=== PATIENT | male | born 1965 | race Caucasian/White ===

== ENCOUNTER 2019-05-13 18:21 | Emergency (ER) | payer OTHER, MEDICAID ==
[~2019-05-13] VITALS: Ht 175.3 cm; Wt 109.1 kg
[~2019-05-13 18:21] MED LIST: ALBU18HF2 IH; ATE25T PO; CYAN100061 IM; DULO-31 PO; ELET40TA PO; EPIN0.3A2 SQ; ERGO500014 PO; ESZO3TAB44 PO; FENT1PAT11 TD; FLO44IN IH; LISI-222 PO; MOME220A2 IH; NOR5T PO; PRED10TA PO; SIMV80TA2 PO; TIOT18CA7 IH
[2019-05-13 18:51] LABS: BASOPHILS # (AUTO) 0.1 X10'3 (0-0.2); EOSINOPHILS # (AUTO) 0.2 X10'3 (0-0.9); EOSINOPHILS % (AUTO) 1.5 % (0-6); HEMATOCRIT 42.5 % (42.0-52.0); HEMOGLOBIN 14.6 g/dl (14.0-17.9); LYMPHOCYTES # (AUTO) 2.9 X10'3 (1.1-4.8); LYMPHOCYTES % (AUTO) 28.1 % (21-51); MEAN CORPUSCULAR HEMOGLOBIN 30.3 PG (27.0-31.0); MEAN CORPUSCULAR HGB CONC 34.3 g/dL (33.0-36.5); MEAN CORPUSCULAR VOLUME 88.4 FL (78-98); MEAN PLATELET VOLUME 7.9 FL (7.4-10.4); MONOCYTES # (AUTO) 0.9 X10'3 (0-0.9); MONOCYTES % (AUTO) 8.6 % (2-12); NEUTROPHILS # (AUTO) 6.3 X10'3 (1.8-7.7); NEUTROPHILS % (AUTO) 60.8 % (42-75); PLATELET COUNT 197 X10'3 (140-440); RED BLOOD COUNT 4.81 X10'6 (4.70-6.10); RED CELL DISTRIBUTION WIDTH 16.1 % (11.5-14.5); WHITE BLOOD COUNT 10.3 X10'3 (4.5-11.0)
[2019-05-13] MEDS ORDERED: ondansetron 4mg rapidly disintigrating tab PO ONE (18:55)
[2019-05-13 19:01] LABS: PARTIAL THROMBOPLASTIN TIME 29 SECONDS (22-32)
[2019-05-13 19:03] LABS: ALANINE AMINOTRANSFERASE 43 U/L (12-78); ALBUMIN 3.8 G/DL (3.4-5.0); ALBUMIN/GLOBULIN RATIO 1.1 (1.1-1.5); ALKALINE PHOSPHATASE 63 IU/L (46-116); ANION GAP 11 (8-16); ASPARTATE AMINO TRANSFERASE 16 U/L (10-37); BILIRUBIN,TOTAL 0.3 MG/DL (0.1-1.0); BLOOD UREA NITROGEN 19 MG/DL (7-18); BUN/CREATININE RATIO 19.8 (5.4-32.0); CALCIUM 8.5 MG/DL (8.5-10.1); CHLORIDE 103 MMOL/L (99-107); CREATININE 0.96 MG/DL (0.60-1.10); GLUCOSE 84 MG/DL (70-104); POTASSIUM 3.8 MMOL/L (3.5-5.1); SODIUM 139 MMOL/L (135-145); TOTAL CARBON DIOXIDE 25.4 MMOL/L (24-32); TOTAL PROTEIN 7.3 G/DL (6.4-8.2); eGFR 82 ML/MIN
[2019-05-13] MEDS ORDERED: morphine 4 MG/ML inj SYRINge IV ONE (19:25)
[2019-05-13 22:47] VITALS: BP 112/76
== END 2019-05-13 22:40 | disposition home or self-care (01) ==
LOC: ER 18:21
DX: R07.89 Other chest pain (principal); I25.10 Atherosclerotic heart disease of native coronary artery without angina pectoris; J44.9 Chronic obstructive pulmonary disease, unspecified; E11.9 Type 2 diabetes mellitus without complications; Z87.442 Personal history of urinary calculi; Z79.899 Other long term (current) drug therapy
CPT/HCPCS: 36415; 71045; 80053; 84484; 85025; 85610; 85730; 93005; 96374; 99284; J2270; J2405

== ENCOUNTER 2025-03-17 18:04 | Emergency (ER) | payer MEDICAID, OTHER ==
[~2025-03-17] VITALS: Ht 175.3 cm; Wt 111.4 kg
--- NOTE | 2025-03-17 18:22 | Physician Documentation ---
History of Present Illness ~ Chief Complaint: Hypoglycemia Stated Complaint: SUGAR LEVEL IS STAYING DOWN Time Seen by MD: 18:44 OK to notify your PCP?: Yes Primary Medical Doctor: In [place] Source: patient Mode of Arrival: POV Exam Limitations: no limitations HPI 59-year-old male presents with low blood sugar readings since yesterday down into the 50s. He denies any recent illness or medication changes. He currently taking Ozempic for the management of his type 2 diabetes, his last shot was last Tuesday. History obtained below by Dr. Bernard: Chief Complaint: Low blood sugar Caveat: None Independent Historians: Family History of Present Illness: Patient is a 59-year-old man who comes in stating that his blood sugars have been running in the 50s and 60s since yesterday afternoon. Patient uses a Melisa to monitor his glucose. However he is not been calibrating it or course bleeding his results with a glucometer. Patient does not have a glucometer with him as he is traveling from [place]. Patient states that he has been having periods of feeling shaky and lightheaded when his phone is reading a blood sugar in the 50s and 60s. Review of systems: All systems were reviewed and are negative except for what is indicated in the history of present illness. Past Medical History: On Ozempic for weight loss, type 2 diabetes but not on any sulfonylureas Past Surgical History: Multiple lumbar and orthopedic surgeries Social History: No tobacco use, no alcohol use, no drug use Medications: Reviewed as documented Nursing Notes Allergies: Reviewed as documented in Nursing Notes Tetanus within 5 years: Yes Medication Reconciliation Allergies: Coded Allergies: erythromycin base (Verified Allergy, Unknown, toungue swelling ,ended up in ICU., 03/17/25) Uncoded Allergies: BEES (Allergy, Unknown, 03/17/25) WASPS (Allergy, Unknown, 03/17/25) Scheduled Amlodipine* (Norvasc*), 10 MG PO DAILY, (Reported) Atenolol* (Tenormin*), 25 MG PO DAILY, (Reported) Cyanocobalamin Inj.* (Vitamin B12 Inj*), 1,000 MCG IM Q30D, (Reported) Duloxetine Hcl* (Cymbalta*), 60 MG PO DAILY, (Reported) Epinephrine (Adrenaclick), 0.3 MG SQ PRN, (Reported) Ergocalciferol* (Vitamin D*), 50,000 UNITS PO Q7D, (Reported) Eszopiclone (Eszopiclone), 3 MG PO QHS, (Reported) Fentanyl Patch 75 MCG* (Duragesic 75 MCG*), 1 PATCH TD Q72H, (Reported) Fluticasone Propionate 44 MCG* (Flovent Hfa 44 MCG*), 1 PUFFS IH DAILY, (Reported) Lisinopril* (Lisinopril*), 5 MG PO DAILY, (Reported) Mometasone Furoate (Asmanex), 0.24 GM IH HS, (Reported) Prednisone (Prednisone), 10 MG PO Q12H Simvastatin* (Zocor*), 80 MG PO HS, (Reported) Tiotropium [place]* (Spiriva*), 18 MCG IH DAILY, (Reported) Scheduled PRN Albuterol Sulfate (Ventolin Hfa), 2 PUFFS IH Q6H PRN, (Reported) Eletriptan HBr (Relpax), 40 MG PO AT ONSET OF MIGRANE PRN, (Reported) Durable Medical Equipment Blood-Glucose Meter (Advanced Glucose Meter), LANCETS .SEE ORDER QID, (DME) Blood-Glucose Meter (Blood Glucose Meter), EACH MC QID, (DME) Blood-Glucose Meter (Blood Glucose Meter), STRIP QID, (DME) Past Medical History Past Medical History: Coronary Artery Disease, COPD, Kidney Stones, Diabetes Alcohol Use: Rarely Lives with: Spouse Lives In: Home Review of Systems All Other Systems at this time: Reviewed and Negative ROS Patient denies any other acute symptoms other than above. All other systems are negative Physical Exam Vital Signs: RN Vital Signs have been reviewed: Yes, Temperature: 97.7, Heart Rate: 90, Respiratory Rate: 17, BP: 170/91, Pulse Oximetry: 97, Weight: 111.360 Oxygen Flow Rate: 0 Pulse Oximetry Reflects: adequate oxygenation Physical Exam General: Alert, no distress. HEENT: No injection, moist mucous membranes. Neck: Full range of motion. Respiratory: No respiratory distress, equal chest rise and fall. Chest: No accessory muscle use. Cardiovascular: Regular rate and rhythm. Gastrointestinal: Nondistended. Extremities: Normal range of motion, no deformity. Neurologic: Oriented x4. Psychiatric: Normal mood and affect. Skin: Normal color, warm and dry. Physical exam below by Dr. Bernard: General Appearance: No distress Neck: supple, normal ROM, trachea midline Pulmonary: No respiratory distress, CTA, BS equal Cardiac: RRR, no murmur, rub or gallop, GI: nondistended, soft, nontender, normal bowel sounds, no guarding, no rebound Skin: intact, dry, warm, no rashes Neuro: AAOx3, speech is clear, no focal motor weakness Psych: normal affect, good eye contact, no apparent hallucination, normal speech Progress Results/Orders Results/Orders Vital Signs 03/17/25 03/17/25 03/17/25 03/17/25 18:12 18:38 18:46 19:40 Temp 97.7 98.6 Pulse 90 87 85 Resp 17 18 18 18 B/P (MAP) 170/91 146/81 (102) 145/80 Pulse Ox 97 98 99 O2 Flow Rate 0 Laboratory Tests Test 03/17/25 18:11 03/17/25 18:39 03/17/25 19:29 Glucometer 91 87 89 Medical Decision Making Findings Differential diagnosis includes but is not limited to: Hypoglycemia, inaccurate monitoring Melisa Emergency department course/medical decision-making: Patient is a 59-year-old man who normally has very good control of his blood sugars. Patient noted since yesterday he has been running blood sugars in the 50s to 60s. He monitors his blood sugar with a Melisa connected to his phone. However the patient's blood sugar here is 87 in his Melisa is reading 54. Patient's Leanna is likely inaccurate. He is going to replace it. Patient is not on any agents that would cause hypoglycemia such as sulfonylurea or other oral agents. Patient has not taken his 70 30 insulin for maybe six months. Patient is stable for discharge. Patient is going to obtain a glucometer to also monitor his blood glucose while traveling. Patient is changing his liver to a new set. Departure Disposition: HOME / SELF CARE / HOMELESS Impression: Primary Impression: Evaluation for hypoglycemia Additional Impression: Encounter for medical screening examination Condition: Stable Discharge Instructions: Hypoglycemia, [id number] Additional Instructions: RECOMMEND YOU OBTAIN AND GLUCOMETER ALONG WITH THE MELISA TO SEE HOW ACCURATE L IBRE IS. MELISA MAY NEED TO BE CHANGED AND/OR CALIBRATED. Prescriptions Blood-Glucose Meter (Blood Glucose Meter) 1 Each Each STRIP QID for DIABETES, #100 Prov: RADHA BERNARD MD 03/17/25 Blood-Glucose Meter (Blood Glucose Meter) 1 Each Each EACH QID for DIABETES, #1 Prov: RADHA BERNARD MD 03/17/25 Blood-Glucose Meter (Advanced Glucose Meter) 1 Each Each LANCETS .SEE ORDER QID for DIABETES, #100 Prov: RADHA BERNARD MD 03/17/25 Education Educated: Patient Educated regarding: diagnosis, treatment, need for follow up Additional Comment Medical Screen Exam This patient recieved a medical screening examination. After reviewing the individual's medical complaints with presenting symptoms and performing an appropriate physical examination, it was determined that no immediate life- threatening emergency medical condition is present. This individual is also not a women having contractions. Signature Scribe Signature: No scribe Attestation: No scribe CORNELIUS PRITCHETTP Mar 17, 2025 18:22 RADHA BERNARD MD Mar 17, 2025 19:03
[2025-03-17] MEDS ORDERED: [UNRECOGNIZED DRUG - CODE] (19:14)
[2025-03-17] MEDS ORDERED: BLOO1EAC70 MC (19:14)
[2025-03-17 19:40] VITALS: BP 145/80; PULSE 85; RESP 18; TEMP 98.6; O2SAT 99
== END 2025-03-17 19:42 | disposition home or self-care (01) ==
LOC: ER 18:05
DX: E11.649 Type 2 diabetes mellitus with hypoglycemia without coma (principal); I25.10 Atherosclerotic heart disease of native coronary artery without angina pectoris; J44.9 Chronic obstructive pulmonary disease, unspecified; Z87.440 Personal history of urinary (tract) infections; Z88.1 Allergy status to other antibiotic agents; Z88.8 Allergy status to other drugs, medicaments and biological substances
CPT/HCPCS: 82948; 99284